=== PATIENT | female | born 1965 | race Caucasian/White ===

== ENCOUNTER → 2017-06-21 | Outpatient (CLI) | payer OTHER ==
[~2017-06-21] MED LIST: ESTRADIOL 1 MG T1 M1 PO; HYDROCODONE-AP1 EAC6 PO; IBUPROFEN 200200 M1 PO; MOBIC15 MG PO; NAPROSYN500 MG PO; NEURONTIN 300M300 M2 PO; OXYCODONE-APAP1 EAC4 PO; PROGESTERONE200 MG PO; SYNTHROID125 MC1 PO; VITAMIN D3400 UNIT PO; WELLBUTRIN XL300 MG PO; ZOFRAN ODT4 MG DISSOLVE
== END ==
LOC: M.MRI 16:07
DX: M25.522 Pain in left elbow (principal)

== ENCOUNTER 2017-06-30 15:29 | Observation (INO) | payer OTHER ==
[2017-06-30 16:00] VITALS: BP 154/80
[2017-06-30] MEDS ORDERED: ESTRADIOL 1 MG T1 M1 PO (16:12)
[2017-06-30] MEDS ORDERED: WELLBUTRIN XL300 MG PO (16:12)
[2017-06-30] MEDS ORDERED: PROGESTERONE200 MG PO (16:12)
[2017-06-30] MEDS ORDERED: SYNTHROID125 MC1 PO (16:13)
[2017-06-30] MEDS ORDERED: IBUPROFEN 200200 M1 PO (16:13)
[2017-06-30] MEDS ORDERED: NAPROSYN500 MG PO (16:13)
[2017-06-30] MEDS ORDERED: VITAMIN D3400 UNIT PO (16:14)
[2017-06-30] MEDS ORDERED: HYDROCODONE-AP1 EAC6 PO (16:15)
[2017-06-30] MEDS ORDERED: ZOFRAN ODT4 MG DISSOLVE (16:15)
--- NOTE | 2017-06-30 17:19 | NUR ---
PT ARRIVED TO ROOM. PT ORIENTED TO ROOM,CALL LIGHT WITHIN REACH. PT REPORTS PAIN. MEDS AND ORDERS REVIEWED.
[2017-06-30 20:00] VITALS: BP 105/59
[2017-06-30 23:41] VITALS: BP 135/57
[2017-07-01 04:03] VITALS: BP 114/62
[2017-07-01 04:26] LABS: HEMATOCRIT 37.3 % (37.0-47.0); HEMOGLOBIN 12.1 gm/dL (12.0-15.0); MCH 26.9 pg (26.0-34.0); MCHC 32.4 g/dL (28.0-37.0); MCV 83.1 fL (80.0-100.0); MPV 9.3 fl. (7.2-11.1); NUCLEATED RBCS 0 /100WBC; PLATELET COUNT* 207 thou/uL (150-400); RBC 4.49 mil/uL (4.20-5.00); RDW-CV 14.2 % (10.5-14.5); WBC 12.5 thou/uL (4.0-11.0)
[2017-07-01 04:50] LABS: CALCIUM 8.8 mg/dL (8.5-10.1); POTASSIUM 4.9 mmol/L (3.5-5.1)
[2017-07-01 06:26] LABS: ABSOLUTE LYMPHOCYTES 0.8 thou/uL (0.8-5.3); ABSOLUTE MONOCYTES 0.3 thou/uL (0.0-1.2); ABSOLUTE NEUTROPHILS 11.5 thou/uL (1.6-8.1)
[2017-07-01 06:27] LABS: ANISOCYTOSIS 1+; PLATELET ESTIMATE ADEQUATE; POIKILOCYTOSIS 1+
--- NOTE | 2017-07-01 06:53 | NUR ---
Alert and oriented x 4. L arm has tegaderm dressing to incision. L hand and wrist are in a brace. Some slight edema to L arm. She has denied nausea. She had pain meds x 2. She is up with stand by assist to the bathroom. Vitals are stable,she has slept well.
[2017-07-01 08:15] VITALS: BP 97/47
[2017-07-01] MEDS ORDERED: OXYCODONE-APAP1 EAC4 PO (11:08)
[2017-07-01 11:18] VITALS: BP 97/47
[2017-07-01] MEDS ORDERED: MOBIC15 MG PO (11:30)
[2017-07-01] MEDS ORDERED: NEURONTIN 300M300 M2 PO (11:31)
--- NOTE | 2017-07-01 11:51 | NUR ---
PATIENT CONTINUED TO RATE PAIN AN 8/10 AFTER VICODIN THIS AM. ORTHO WROTE SCRIPT FOR PERCOCET, 2 TABS GIVEN ORDERED. PATIENT CONTINUES TO RATE LEFT ARM PAIN AN 8/10, PER DR. MORALES CONTINUE WITH DISCHARGE ORDERS. LEFT WRIST BRACE REMAINS IN PLACE WITH TEGADERM TO LEFT ELBOW. IV DC'D. TOLERATING DIET. VERBALIZES UNDERSTANDING OF PAPERWORK AND SCRIPTS. PATIENT TAKEN OUT VIA WHEELCHAIR.
== END 2017-07-01 11:54 | disposition home or self-care (01) ==
LOC: M.3W 15:29
PROVIDERS: ADMIT Internal Medicine
DX: M25.522 Pain in left elbow (principal); G89.18 Other acute postprocedural pain; G89.29 Other chronic pain; E03.9 Hypothyroidism, unspecified; F41.9 Anxiety disorder, unspecified; Z90.89 Acquired absence of other organs; Z85.850 Personal history of malignant neoplasm of thyroid; Z98.890 Other specified postprocedural states